=== PATIENT | male | born 1995 | race Hispanic/Latino ===

== ENCOUNTER 2016-10-16 22:06 | Emergency (ER) | payer MEDICAID ==
[2016-10-16 22:06] VITALS: BMI 23.6
[2016-10-16 22:18] VITALS: O2SAT 96
--- NOTE | 2016-10-16 22:38 | C.PDOC ---
History Of Present Illness Patient presents to the ER for a complaint of SOB. Patient has a history of asthma and occasionally smokes. Patient was treated with duoneb and 125 solumedrol in the field. Denies any fever, chills, nausea, or vomiting. Time Seen by Provider: 10/16/16 22:37 Chief Complaint (Nursing): Shortness Of Breath History Per: Patient History/Exam Limitations: no limitations Onset/Duration Of Symptoms: Hrs Current Symptoms Are (Timing): Still Present Initiating Event: Out Of Medications Quality: Other Exacerbating Factor(s): Exertion, Coughing Current Respiratory Medications: See Home Med List Severity: Severe Pain Scale Rating Of: 7 Associated Symptoms: denies: Fever, Chills Recent travel outside of the [place]: No Additional History Per: Patient Past Medical History Reviewed: Historical Data, Nursing Documentation, Vital Signs Vital Signs: Last Vital Signs Temp 97.4 F L 10/16/16 22:11 Pulse 94 H 10/16/16 22:11 Resp 24 10/16/16 23:13 BP 130/65 10/16/16 22:11 Pulse Ox 96 10/16/16 23:13 - Medical History PMH: Asthma - [facility] Procedures CLOSURE SKIN & SUBCUTANEOUS NEC (07/22/14) Family History: States: No Known Family Hx - Social History Hx Tobacco Use: No Hx Alcohol Use: Yes Hx Substance Use: No - Immunization History Hx Tetanus Toxoid Vaccination: No Hx Influenza Vaccination: No Hx Pneumococcal Vaccination: No Review Of Systems Constitutional: Negative for: Fever, Chills ENT: Negative for: Throat Pain Cardiovascular: Negative for: Chest Pain Respiratory: Positive for: Shortness of Breath, Wheezing. Negative for: Cough Gastrointestinal: Negative for: Nausea, Vomiting Musculoskeletal: Negative for: Back Pain Skin: Negative for: Rash, Lesions, Jaundice Neurological: Negative for: Weakness Psych: Negative for: Anxiety Physical Exam - Physical Exam Appears: In Acute Distress, Other (Speaking in 4-5 word sentences) Skin: Warm, Dry Oral Mucosa: Moist Neck: Supple Chest: Symmetrical Cardiovascular: Rhythm Regular Respiratory: Decreased Breath Sounds, No Rales, No Rhonchi, Wheezing (Scattered wheezes) Gastrointestinal/Abdominal: Soft, No Tenderness Back: Normal Inspection Extremity: Normal ROM Extremity: Bilateral: Atraumatic, Normal Color And Temperature Neurological/Psych: Oriented x3, Normal Speech, Normal Cognition Gait: Steady ED Course And Treatment O2 Sat by Pulse Oximetry: 96 (Room air) Pulse Ox Interpretation: Normal Progress Note: Peak flow pre/post tx ordered. Duoneb administered. Reevaluation Time: 23:52 Reassessment Condition: Improved Critical Care Time - Critical Care Note Total Time (in mins): 30 Documented critical care: time excludes all time spent performing seperately billable procedures. Medical Decision Making Medical Decision Making: Upon provider reevaluation patient is feeling better, is medically stable, and requires no further treatment in the ED at this time. Patient will be discharged home with Rx for albuterol, prednisone . Counseling was provided and all questions were answered regarding diagnosis and need for follow up with the referred clinic. There is agreement to discharge plan. Return if symptoms persist or worsen. Disposition Counseled Patient/Family Regarding: Studies Performed, Diagnosis, Need For Followup, Rx Given - Disposition Referrals: [facility] [Outside] Disposition: HOME/ ROUTINE Disposition Time: 22:37 Condition: FAIR Prescriptions: Albuterol HFA [Ventolin HFA 90 mcg/actuation (8 g)] 2 puff IH [id number] #1 puff Prednisone [Deltasone] 20 mg PO DAILY #5 tablet Instructions: Asthma (DC) - Clinical Impression Clinical Impression: Asthma exacerbation - Scribe Statement The provider has reviewed the documentation as recorded by the Scribe Glenn Solis All medical record entries made by the Scribe were at my direction and personally dictated by me. I have reviewed the chart and agree that the record accurately reflects my personal performance of the history, physical exam, medical decision making, and the department course for this patient. I have also personally directed, reviewed, and agree with the discharge instructions and disposition.
[2016-10-16] MEDS ORDERED: Albuterol-Ipratrop 3 mg / 0.5 (3 ml) UD ONE (22:59)
[2016-10-16] MEDS: Albuterol-Ipratrop 3 mg / 0.5 (3 ml) UD IH SCH ×2 (23:00→23:01)
[2016-10-17 00:10] VITALS: BP 121/57; PULSE 91; RESP 16; TEMP 97.9
== END 2016-10-17 00:11 | disposition home or self-care (01) ==
LOC: C.ER 22:06
DX: J45.901 Unspecified asthma with (acute) exacerbation (principal)

== ENCOUNTER 2016-10-25 10:51 | Observation (INO) | payer MEDICAID ==
[2016-10-25 10:52] VITALS: BMI 23.6
[2016-10-25 11:01] VITALS: O2SAT 96
--- NOTE | 2016-10-25 11:46 | C.PDOC ---
History Of Present Illness 21 year old male presents to the ED with complaints of recurring localized left groin pain for the past 2 days. Patient states the pain is worse with walking and notes he has intermittent swelling to the area. He reports having similar symptoms several years ago but he was not evaluated for it. Patient also has complaints of recurring asthma exacerbation and was seen on 10/17/16 for the same but did not start taking Prednisone until 10/21/16 and 10/22/16. He has not had a steroid dose since 10/22/16 and states he quit smoking 3 weeks ago. Denies nausea, vomiting, past surgical history, or any other complaints at this time. RECUR L GROIN PAIN X 2 DAYS. WORSE WHEN WALKING. LOCALIZED, INTERMIT SWELLING TO AREA. SIM SX YRS AGO BUT NO EVAL FOR SAME. NO NV, PSH. ALSO RECUR ASTHMA EXAC. SEEN 10/17 FOR SAME BUT STATES DID NOT START TAKING PREDNISONE UNTIL 10/21 AND . NO STEROID DOSE SINCE 10/22. PS QUIT SMOKING 3 WKS AGO EXAM NARD MILD DIST HEENT NEG LUNGS B/L EXP WHEEZE W BRONCHIAL SOUNDS NO RETRACTION SPEAKING FULL SENTENCES ABD NEG +TEND R GROIN TEND REDUCIBLE MASS Time Seen by Provider: 10/25/16 11:22 Chief Complaint (Nursing): Shortness Of Breath History Per: Patient History/Exam Limitations: no limitations Onset/Duration Of Symptoms: Days Current Symptoms Are (Timing): Still Present Severity: Mild Past Medical History Reviewed: Historical Data, Nursing Documentation, Vital Signs Vital Signs: Last Vital Signs Temp 98.0 F 10/25/16 10:59 Pulse 74 10/25/16 10:59 Resp 17 10/25/16 10:59 BP 121/71 10/25/16 10:59 Pulse Ox 96 10/25/16 15:15 - Medical History PMH: Asthma - [facility] Procedures CLOSURE SKIN & SUBCUTANEOUS NEC (07/22/14) Family History: States: Unknown Family Hx - Social History Hx Tobacco Use: No Hx Alcohol Use: Yes Hx Substance Use: No - Immunization History Hx Tetanus Toxoid Vaccination: No Hx Influenza Vaccination: No Hx Pneumococcal Vaccination: No Review Of Systems Except As Marked, All Systems Reviewed And Found Negative. Constitutional: Negative for: Fever, Chills Respiratory: Positive for: Other (+Asthma exacerbation) Gastrointestinal: Negative for: Nausea, Vomiting, Abdominal Pain Genitourinary: Positive for: Other (+Left groin pain). Negative for: Dysuria, Frequency Musculoskeletal: Negative for: Neck Pain, Back Pain Skin: Negative for: Rash Neurological: Negative for: Weakness, Numbness Physical Exam - Physical Exam Appears: Non-toxic, Other (+Mild distress) Skin: Normal Color, Warm, Dry Head: Atraumatic, Normacephalic Eye(s): bilateral: Normal Inspection, EOMI Ear(s): Bilateral: Normal Nose: Normal Oral Mucosa: Moist Throat: Normal, No Erythema, No Exudate Chest: Symmetrical, No Deformity Cardiovascular: Rhythm Regular, No Murmur Respiratory: No Accessory Muscle Use, No Rales, No Rhonchi, Wheezing (+ Bilateral expiratory wheezing with bronchial sounds), Other (+Speaking in full sentences) Gastrointestinal/Abdominal: Normal Exam, Soft, No Tenderness, No Distention, No Guarding, No Rebound Male Genital: Other (+Right groin tenderness +Tender reducible mass) Extremity: Normal ROM Neurological/Psych: Oriented x3, Normal Speech, Normal Cognition ED Course And Treatment - Laboratory Results Result Diagrams: 10/25/16 12:02 10/25/16 12:02 O2 Sat by Pulse Oximetry: 96 (Room air) Pulse Ox Interpretation: Normal - CT Scan/US CT ABD &Pelvis w/contrast Other Rad Studies (CT/US): Read By Radiologist, Radiology Report Reviewed CT/US Interpretation: FINDINGS: LOWER THORAX: Unremarkable. LIVER: Unremarkable. No gross lesion or ductal dilatation. GALLBLADDER AND BILE DUCTS : Unremarkable. PANCREAS: Unremarkable. No gross lesion or ductal dilatation. SPLEEN: Unremarkable. ADRENALS: Unremarkable. No mass. KIDNEYS AND URETERS: Unremarkable. No hydronephrosis. No solid mass. VASCULATURE: Unremarkable. No aortic aneurysm. BOWEL: Mild small bowel wall thickening is noted. Findings may be represent enteritis. No evidence of bowel obstruction. No evidence of colitis. APPENDIX: No evidence of appendicitis. PERITONEUM: Unremarkable. No free fluid. No free air. LYMPH NODES: Unremarkable. No enlarged lymph nodes. BLADDER: Unremarkable. REPRODUCTIVE: Unremarkable. BONES: No acute fracture. OTHER FINDINGS: None. IMPRESSION: Mild small bowel wall thickening. Correlate clinically for enteritis. No CT evidence of appendicitis cholecystitis or pancreatitis. Medical Decision Making Medical Decision Making: Plan: * CT ABD & Pelvis w/contrast * Blood work * Urinalysis * DuoNeb * IV fluids * Reassess ED OBSERVATION Discharge: Yes Date of observation admission: 10/25/16 Time of observation admission: 11:30 - Observation admission statement Patient is being placed in observation because:: GROIN PAIN; ASTHMA EXAC - Goals of Observation Goals of observation are:: NEG SURG ABD. SX IMPROVE - Progress Note Progress Note: 10/25/16 15:45 ASYMPT NARD FEELS BETTER. ADVISED OF CT FINDINGS, FU PMD Disposition Counseled Patient/Family Regarding: Studies Performed, Diagnosis, Need For Followup - Disposition Disposition: HOME/ ROUTINE Disposition Time: 15:50 Condition: IMPROVED - Clinical Impression Clinical Impression: Asthma exacerbation, Inguinal pain - Scribe Statement The provider has reviewed the documentation as recorded by the Scribe Mateusz Wlof. Provider Attestation: All medical record entries made by the Reaibe were at my direction and personally dictated by me. I have reviewed the chart and agree that the record accurately reflects my personal performance of the history, physical exam, medical decision making, and the department course for this patient. I have also personally directed, reviewed, and agree with the discharge instructions and disposition.
[2016-10-25] MEDS ORDERED: Iohexol 240 (50 ml) PO STA (11:52)
[2016-10-25] MEDS ORDERED: Sodium Chloride 0.9% 1,000 ML IV ONE (11:52)
[2016-10-25] MEDS ORDERED: Albuterol-Ipratrop 3 mg / 0.5 (3 ml) UD IH STA (11:56)
[2016-10-25] MEDS ORDERED: Iohexol 240 (50 ml) ONE (12:00)
[2016-10-25] MEDS ORDERED: Sodium Chloride 0.9% 1,000 ML ONE (12:00)
[2016-10-25] MEDS ORDERED: Albuterol-Ipratrop 3 mg / 0.5 (3 ml) UD ONE (12:03)
[2016-10-25 12:06] LABS: BASO # 0.1 K/uL (0.0-0.2); BASO % 0.8 % (0.0-2.0); EOS # 0.3 K/uL (0.0-0.7); EOS % 3.8 % (0.0-4.0); HEMATOCRIT 48.1 % (35.0-51.0); LYMPH # 1.9 K/uL (1.0-4.3); LYMPH % 27.6 % (20.0-40.0); MEAN CELL VOLUME 87.2 fL (80.0-94.0); MEAN CORPUSCULAR HEMOGLOBIN 29.8 pg (27.0-31.0); MEAN CORPUSCULAR HGB CONC 34.2 g/dL (33.0-37.0); MEAN PLATELET VOLUME 8.8 fL (7.2-11.7); MONO # 0.7 K/uL (0.0-0.8); MONO % 10.8 % (0.0-10.0); RED CELL DISTRIBUTION WIDTH 13.2 % (11.5-14.5); WHITE BLOOD COUNT 6.7 K/uL (4.8-10.8)
[2016-10-25 12:08] LABS: RBC URINE 1 /hpf (0-3); URINE BACTERIA RARE (<OCC); URINE BILIRUBIN NEGATIVE (NEGATIVE); URINE BLOOD NEGATIVE (NEGATIVE); URINE COLOR Yellow (YELLOW); URINE GLUCOSE (UA) NORMAL (Normal); URINE KETONE NEGATIVE (NEGATIVE); URINE LEUKOCYTE ESTERASE NEG Leu/uL (Negative); URINE PROTEIN NEGATIVE (NEGATIVE); WBC URINE 4 /hpf (0-5)
[2016-10-25 12:21] LABS: CHLORIDE 101 mmol/L (98-107)
[2016-10-25 12:22] LABS: POTASSIUM 3.8 mmol/L (3.6-5.2); SODIUM 138 mmol/L (132-148)
[2016-10-25 12:24] LABS: ALB/GLOB RATIO 1.3 (1.0-2.1); ALKALINE PHOSPHATASE 41 U/L (38-126); ALT/SGPT 34 U/L (21-72); AST/SGOT 26 U/L (17-59); BILIRUBIN,TOTAL 1.4 mg/dL (0.2-1.3); BLOOD UREA NITROGEN 16 mg/dL (9-20); CARBON DIOXIDE 26 mmol/L (22-30); GFR AFRICAN-AMERICAN > 60
[2016-10-25 12:25] LABS: CALCIUM 8.7 mg/dl (8.6-10.4); GLUCOSE,RANDOM 90 mg/dL (75-110)
[2016-10-25] MEDS ORDERED: Iohexol 350mg/ml 100 ML ONE (13:56)
--- NOTE | 2016-10-25 14:55 | CT ---
PROCEDURE: CT Abdomen and Pelvis with contrast HISTORY: abd pain COMPARISON: None. TECHNIQUE: Axial and reformatted coronal and sagittal CT images of the abdomen and pelvis were obtained after IV and oral contrast administration. Contrast dose: 100 mL of Omnipaque 350 Radiation dose: Total exam DLP = 293.8 mGy-cm. This CT exam was performed using one or more of the following dose reduction techniques: Automated exposure control, adjustment of the mA and/or kV according to patient size, and/or use of iterative reconstruction technique. FINDINGS: LOWER THORAX: Unremarkable. LIVER: Unremarkable. No gross lesion or ductal dilatation. GALLBLADDER AND BILE DUCTS: Unremarkable. PANCREAS: Unremarkable. No gross lesion or ductal dilatation. SPLEEN: Unremarkable. ADRENALS: Unremarkable. No mass. KIDNEYS AND URETERS: Unremarkable. No hydronephrosis. No solid mass. VASCULATURE: Unremarkable. No aortic aneurysm. BOWEL: Mild small bowel wall thickening is noted. Findings may be represent enteritis. No evidence of bowel obstruction. No evidence of colitis. APPENDIX: No evidence of appendicitis. PERITONEUM: Unremarkable. No free fluid. No free air. LYMPH NODES: Unremarkable. No enlarged lymph nodes. BLADDER: Unremarkable. REPRODUCTIVE: Unremarkable. BONES: No acute fracture. OTHER FINDINGS: None. IMPRESSION: Mild small bowel wall thickening. Correlate clinically for enteritis. No CT evidence of appendicitis cholecystitis or pancreatitis.
[2016-10-25 15:45] VITALS: BP 110/67; PULSE 81; RESP 16; TEMP 97.9
== END 2016-10-25 15:51 | disposition home or self-care (01) ==
LOC: C.ER 10:51 → C.9OBSV 11:30
PROVIDERS: ADMIT Emergency Medicine; ATTEND Emergency Medicine
DX: J45.901 Unspecified asthma with (acute) exacerbation (principal); R10.32 Left lower quadrant pain
CPT/HCPCS: 36415; 74177; 80053; 81001; 83690; 85025; 94640; 96360; 96361; 99284; G0378; J7040; Q9966; Q9967